=== PATIENT | female | born 1950 | race Caucasian/White ===

== ENCOUNTER → 2023-08-05 | Outpatient (CLI) | payer MEDICAID ==
[~2023-08-05] MED LIST: ACETAMINOPHEN-H1 TA2 PO; ATORVASTATIN CA10 MG PO; BACTRIM DS TAB1 EACH PO; CEPHALEXIN500 M1 PO; DRIZALMA SPRINK20 MG; DULOXETINE60 MG PO; FUROSEMIDE10 MG/M1; FUROSEMIDE40 MG; MELOXICAM5 MG PO; MELOXICAM7.5 MG PO; POTASSIUM CHLO20 ME4 PO; PRILOSEC 20MG20 MG PO; PRILOSEC2.5 MG/Pac; THERMOTABS 2871 TAB; ZAROXOLYN
[2023-08-05 12:07] LABS: CALCIUM 8.9 mg/dL (8.3-10.5)
== END ==
LOC: LAB 11:46
PROVIDERS: Nurse Practitioner Primary Care
DX: E87.6 Hypokalemia (principal)